=== PATIENT | male | born 1995 | race Caucasian/White ===

== ENCOUNTER 2017-08-10 12:52 | Emergency (ER) | payer OTHER, BC ==
[~2017-08-10] VITALS: Ht 180.3 cm; Wt 105.7 kg
[~2017-08-10 12:52] MED LIST: AUGMENTIN875 MG PO; NAPROSYN500 MG PO; ULTRAM50 MG PO
[2017-08-10] MEDS ORDERED: AUGMENTIN875 MG PO (14:32)
== END 2017-08-10 16:52 | disposition home or self-care (01) ==
LOC: EME 12:52
DX: S60.811A Abrasion of right wrist, initial encounter (principal); S61.531A Puncture wound without foreign body of right wrist, initial encounter; I10 Essential (primary) hypertension; W55.01XA Bitten by cat, initial encounter; Y99.0 Civilian activity done for income or pay; Z20.3 Contact with and (suspected) exposure to rabies; Z23 Encounter for immunization; Z29.14 Encounter for prophylactic rabies immune globulin
CPT/HCPCS: 99281; 99283